=== PATIENT | female | born 1970 | race Hispanic/Latino ===

== ENCOUNTER 2016-11-21 17:10 | Emergency (ER) | payer OTHER ==
[~2016-11-21] VITALS: Ht 160 cm; Wt 79.5 kg
[~2016-11-21 17:10] MED LIST: ACET-171 PO; CIPR-231 PO; CYCL10TA9 PO; DICY10CA13 PO; HYDR-3090 PO; IBUP200T48 PO; IBUP400T22 PO; METR500T19 PO; NPR500T PO; OXYC1TAB24 PO
[2016-11-21 17:11] VITALS: BP 144/89; PULSE 82; RESP 15; O2SAT 100
--- NOTE | 2016-11-21 20:48 | ED.REPORT ---
HPI-Back Pain 40 and Over Date of Service Nov 21, 2016 ED Provider: Raffi Abbasi PA-C Janessa is a 46-year-old woman with slow mentation who presents with a chief complaint of difficulty walking. She reports that she had back surgery roughly 1 year ago that she has had trouble with her legs ever since. She describes "inflammation" in her right thigh which makes her weak and gives her pain from her thigh to her ankle. She reports increased difficulty walking over the last 2 weeks and increased falling. She states that her left leg is normal for her. Denies fever, DM, HIV, organ transplant, immunosuppression, recent surgery, recent infection, surgical implants and IV drug use. Denies bowel/bladder dysfunction and saddle anesthesia. Patient is a challenging historian, and has difficulty answering questions. She presents with her son who corroborates her account of increased falling over the last 2 weeks. Nursing Notes Stated Complaint: BACK PAIN, DIFFICULTY WALKING Chief Complaint: Back Pain or Injury Nursing Notes Reviewed: Yes Allergies: Coded Allergies: No Known Allergies (Verified Allergy, Unknown, 11/21/16) Scheduled Ciprofloxacin (Cipro) 500 Mg Tablet 500 MG PO BID Metronidazole (Metronidazole) 500 Mg Tablet 500 MG PO QID Scheduled PRN Acetaminophen (Acetaminophen) 500 Mg Tablet 1,000 MG PO Q6H PRN PRN For Pain Cyclobenzaprine (Cyclobenzaprine) 10 Mg Tablet 10 MG PO TID PRN PRN Spasm Dicyclomine (Dicyclomine) 10 Mg Capsule 10 MG PO QID PRN PRN For GI Cramps Hydrocodone-Acetaminophen 5-300 mg (Hydrocodone-Acetaminophen 5-300 mg) 1 Each Tablet 1 TABLET PO Q4H PRN PRN For Pain Ibuprofen (Ibuprofen) 200 Mg Tablet 200 MG PO Q6 PRN PRN For Pain Ibuprofen (Ibuprofen) 400 Mg Tablet 400 MG PO TID PRN PRN For Pain Naproxen (Naproxen) 500 Mg Tab 500 MG PO BID PRN PRN For Pain oxyCODONE-Acetaminophen 5-325 mg (oxyCODONE-Acetaminophen 5-325 mg) 1 Each Tablet 1 TAB PO Q4H PRN PRN For Pain General Time Seen by MD: 19:23 Chief Complaint Other (right leg numbness) Sudden in Onset?: No Past Medical History Past Medical History Notes: [facility] L5-S1 right microdiscectomy on 06/30/[address] Figueroa at [facility] Past Medical History 1. Hypertension. 2. History of H. pylori gastritis, treated. 3. History of class 2 TB completed treatment in 1993. 4. Anxiety. 5. Chronic back pain from work injury, L5-S1 disc herniation with lumbar radiculopathy Past Surgical History Left carpal tunnel release Reports: Back/neck surgery Family History Noncontributory Smoking History Never Smoker Social History Drug Use: Denies drug use Other Social History: Lives with children, Local resident Ambulatory Status Independent Review of Systems Review of Systems Note: Negative unless stated otherwise in history of present illness Physical Exam General: Well appearing, well developed, well nourished, no acute distress. Patient is seated in a wheelchair. Head: Atraumatic, normocephalic. Eyes: No scleral icterus or injection. No discharge. Vision grossly intact. ENT: Voice clear, hearing grossly intact. Respiratory: Regular rate and rhythm. Breath sounds present, clear to auscultation and equal bilaterally. No respiratory distress. No increased work of breathing, speaks in complete sentences. Cardiovascular: Regular rate and rhythm, without murmur, gallop or rub. No pedal edema. Back: 4 cm midline scar over lumbar spine. Negative midline spinous process tenderness. Mild right SI tenderness. No redness, swelling. Skin: Warm and dry. Neurological: Shuffling gait. Patient rises slowly from a wheelchair and shuffles very few steps before stating she cannot continue. Attempts to become situated on the gurney but is unable able to push herself up onto the bed. Returns to wheelchair. Patient is unable to raise her right knee into full extension, however she has 5/5 strength when leg is passively extended and she is asked to lock the knee. Ankle dorsiflexion and plantarflexion strength 5/5 B/ L. Patellar and Achilles reflexes present and equal B/L. Sensation to light touch intact at medial leg, dorsal foot and lateral foot B/L. negative seated straight leg raise, negative seated cross straight leg raise. Psychological: Alert and oriented. Speech extremely slow. Patient has difficulty following instructions in answering questions. Similar presentation is observed in earlier notes. Initial Vital Signs Vital Signs (First) Date Time Temp Pulse Resp B/P Pulse Ox O2 Delivery O2 Flow Rate FiO2 11/21/16 17:11 37.3 82 15 144/89 100 Room Air Initial VS: Reviewed, Vital signs normal Re-Eval/Medical Decision Med Decision/Clinical Course 46-year-old female with history of lumbar surgery and slow mentation presents with increasing numbness in her right leg. Patient describes increasing pain weakness and numbness in her right leg over the last 2 weeks with increasing falls. Increasing falls corroborated by her son. Negative red flag symptoms for cauda equina, epidural abscess, epidural hematoma She is a difficult historian, and has difficulty following instructions for physical examination. Physical examination reveals an extremely short shuffling gait with the patient only able to walk a few steps before stating she cannot go on. She has difficulty situating herself on the bed or in the wheelchair. She cannot actively extend her right leg fully. She has a 5 x 5 strength when passively extended and asked to hold extension. Motor otherwise normal. Sensation and reflexes normal. I discussed this case with Dr. Brown. We feel that an MRI is justified in light of her progressive gait instability. Ordered urinalysis, CBC CMP. Discharge & Departure Shift Change Sign-Out Patient Care Transferred: Yes (Dr. Brown) Discussed Complaint(s): Yes Laboratory Evaluation: Ordered, not yet done Imaging Studies: Ordered, not yet done Response to Therapy: Unchanged Referrals: Massimo Stoner MD (PCP) Raffi Abbasi PA-C Nov 21, 2016 20:48
[2016-11-21 22:04] VITALS: BP 158/93; PULSE 78; RESP 16; O2SAT 100
--- NOTE | 2016-11-21 22:05 | DRSVH ---
PROCEDURE: MRI LUMBAR SPINE WITHOUT CONTRAST ([id number]) INDICATIONS: progressive neurologic changes, poor gait TECHNIQUE: Noncontrast sagittal T1 spin echo and T2 fast echo, sagittal STIR, axial T1 and T2 fast spin echo thr ough the lumbar spine. In cases with scoliosis, additional coronal T2 fast spin echo may be performe d. COMPARISON: [facility], MR, LUMBAR SPINE W/O CONTRAST, 01/26/2015, 15:30. FINDINGS: Image quality: Excellent. Alignment and Curvature: There is normal bony alignment. Bone Marrow: Marrow is of normal overall signal. No acute vertebral body compression fractures. Spinal Cord: Conus medullaris terminates at the L1 level. Visualized cord demonstrates normal signa l and size. Paraspinous Soft Tissues: No paravertebral masses. L1-L2: Normal appearance. L2-L3: Normal appearance. L3-L4: Normal appearance. L4-L5: Normal appearance except for minimal disc height reduction and desiccation without spinal or foraminal stenosis. L5-S1: Moderate degenerative disc disease, posterior transverse disc protrusion appears to have mild ly increased from the comparison study in January of 2015. On the axial imaging there is a broad-based posterior transverse disc bulge/protrusion which combines with bilateral facet osteoarthritis slightl y greater on the left than the right to produce no significant spinal stenosis but near severe left a nd moderately severe right foraminal stenosis. IMPRESSION: The degenerative disc disease along the lumbosacral spine is only mildly worsened at L5- S1 when compared to the prior study from January 2015. Worsening bilateral foraminal stenosis is presen t at that level, but no disc herniation has developed. Elsewhere the lumbosacral spine shows relativ dayna mild degenerative changes as noted. No underlying mass lesion involving the low thoracic cord or conus medullaris/cauda equina is seen. A definite source of current symptoms is not found. Dictated by: Luis Dunlap M.D. on 11/21/2016 at 21:58 Approved by: Luis Dunlap M.D. on 11/21/2016 at 22:03
[2016-11-21] MEDS ORDERED: IBUP-1827 PO (22:43)
[2016-11-21 23:14] VITALS: BP 130/88; PULSE 67; RESP 18; O2SAT 100
== END 2016-11-21 23:16 | disposition home or self-care (01) ==
LOC: SED 17:10
DX: M51.37 Other intervertebral disc degeneration, lumbosacral region (principal); M48.07 Spinal stenosis, lumbosacral region; I10 Essential (primary) hypertension; R26.2 Difficulty in walking, not elsewhere classified; Z98.890 Other specified postprocedural states; Z87.828 Personal history of other (healed) physical injury and trauma